=== PATIENT | male | born 1965 | race Two or more races ===

== ENCOUNTER 2024-09-29 17:56 | Emergency (ER) | payer BC, OTHER, SELFPAY ==
[2024-09-29 17:58] VITALS: BMI 25.0
[2024-09-29 18:13] VITALS: BP 136/90; PULSE 74; RESP 16; TEMP 37.2; O2SAT 99
--- NOTE | 2024-09-29 18:24 | XR_ITS ---
Examination: Duplex scan of the lower extremity, unilateral right Date and time of exam: September 29, 2024 at 1938 hrs. Indications: Status post brain surgery September 22, 2024 with onset right leg pain beginning 2 days ago Technique: Duplex scan of the extremity veins using B-mode/grayscale imaging and Doppler spectral analysis and color flow Attention is directed to internal echogenicity, compression and augmentation involving these veins, color flow assessment, spectral analysis Findings: Positive for extensive occlusive thrombus, acute in volume right common femoral, proximal mid right superficial femoral, popliteal, peroneal and posterior tibial veins Impression: Acute extensive deep vein thrombosis
--- NOTE | 2024-09-29 18:24 | EDRME_ITS ---
Rapid Medical Screening Exam RME Arrival date/time: 09/29/24 17:56 59M with history of brain tumor resection 1 week ago (benign; at [facility]) presents to ED with 2 days of RLE pain and numbness w/o fall/trauma. Patient denies swelling and SOB, as well as RUE weakness, AMS, N/V, and slurred speech. Chief Complaint: Extremity Problem,Nontraumatic Vital signs: Vital Signs Temperature 98.9 F 09/29/24 18:13 Pulse Rate 74 09/29/24 18:13 Respiratory Rate 16 09/29/24 18:13 Blood Pressure 136/90 H 09/29/24 18:13 Pulse Oximetry (%) 99 09/29/24 18:13 Oxygen Delivery Method Room Air 09/29/24 18:13
[2024-09-29 20:11] VITALS: BP 128/89; PULSE 67; RESP 18; O2SAT 99
--- NOTE | 2024-09-29 20:30 | PC.NURSE ---
pt ambulated to BR and did have a normal BM.
[2024-09-29 21:12] LABS: Basophils # (Auto) 0.1 Thou/mm3 (0.0-0.2); Basophils % (Auto) 1 % (0-2.5); Eosinophils # (Auto) 0.1 Thou/mm3 (0.0-0.5); Eosinophils % (Auto) 1 % (0-10); Hematocrit 43.4 % (41.0-53.0); Hemoglobin 15.9 g/dL (13.5-16.0); Immature Granulocytes % (Auto) 2 % (0-0); Immature Granulocytes Auto 0.22 Thou/mm3 (0.00-0.00); Lymphocytes # (Auto) 2.5 Thou/mm3 (1.0-4.8); Lymphocytes % (Auto) 19 % (10-50); Mean Corpuscular HGB Conc 36.6 g/dl (31.0-37.0); Mean Corpuscular Hemoglobin 32.9 pg (25.0-35.0); Mean Corpuscular Volume 90 fL (80-100); Monocytes # (Auto) 1.3 Thou/mm3 (0.0-0.8); Monocytes % (Auto) 10 % (0-12); Neutrophils # (Auto) 8.8 Thou/mm3 (1.8-7.7); Neutrophils % (Auto) 68 % (37-80); Nucleated Red Blood Cell % 0 /100 WBC (0); Platelet Count 224 Thou/mm3 (140-440); Red Blood Count 4.83 Miln/mm3 (4.50-5.90)
[2024-09-29 21:27] LABS: Partial Thromboplastin Time 24.8 Seconds (22.0-36.0); Prothrombin Time 11.4 Seconds (9.0-12.2)
[2024-09-29 21:31] LABS: Alanine Aminotransferase 38 U/L (10-49); Albumin, Serum 5.2 gm/dL (3.5-5.0); Albumin/Globulin Ratio 1.9 (1.2-2.2); Alkaline Phosphatase 58 U/L (46-116); Anion Gap 8 (7-16); Aspartate Amino Transferase 24 U/L (0-34); BUN/Creatinine Ratio 20 Ratio (12-20); Bilirubin,Total 0.5 mg/dL (0.3-1.2); Blood Urea Nitrogen 24 mg/dL (9-23); Calcium 9.8 mg/dL (8.3-10.6); Calcium (Corrected) 9.8 mg/dL (8.5-10.1); Carbon Dioxide 22.8 mMol/L (20.0-31.0); Chloride 104 mMol/L (98-107); Creatinine (Component) 1.2 mg/dL (0.6-1.3); Estimated Creatinine Clearance 62.7 mL/min (>60); Globulin 2.7 gm/dL (2.3-3.5); Glucose 96 mg/dL (74-106); Osmolality,Calculated 274 (275-295); Potassium 4.2 mMol/L (3.4-5.1); Sodium 135 mMol/L (136-145); Total Protein 7.9 gm/dL (5.7-8.2); eGFR > 60 See Note
--- NOTE | 2024-09-29 21:42 | PD.EDADULT ---
ED General RME/HPI General Chief complaint: Extremity Problem,Nontraumatic Stated complaint: RIGHT LEG PAIN x 2 DAYS, S/P SURG 09/22 ON BRAIN Time Seen by Provider: 09/29/24 20:45 Arrival date/time: 09/29/24 17:56 CC: Right leg pain HPI onset approximately 3 days ago patient was recently discharged from [facility] after a left craniotomy secondary to meningioma resection by Dr. Richards. Patient denies any shortness of breath fall altered mentation nausea vomiting or diarrhea is complaining of isolated pain in the right leg. Patient's family member called [facility] nursing services who advised him to come to the ER to rule out a DVT. RME / HPI RME / HPI narrative: 09/29/24 17:56 59M with history of brain tumor resection 1 week ago (benign; at [facility]) presents to ED with 2 days of RLE pain and numbness w/o fall/trauma. Patient denies swelling and SOB, as well as RUE weakness, AMS, N/V, and slurred speech. Related Data Previous Rx's ?Medication ?Instructions ?Recorded docusate sodium 100 mg capsule 100 mg PO BID #40 caps 07/27/21 (Colace) hydrocodone 5 mg-acetaminophen 325 1 tab PO Q6H PRN pain (scale score 07/27/21 mg tablet 7-10) #30 tabs cyclobenzaprine 10 mg tablet 10 mg PO HS PRN muscle spasm #10 01/28/22 tabs Allergies Allergy/AdvReac Type Severity Reaction Status Date / Time No Known Allergies Allergy Verified 01/28/22 17:18 Review of Systems Review of Systems Narrative Review of Systems: GEN: No fever, no chills, no weight loss EYES: No discharge, no visual changes, no pain HEENT: No ear pain, no congestion, no sore throat PULM: No shortness of breath, no cough, no congestion CV: No chest pain, no dyspnea on exertion, no palpitations GI: No nausea, no vomiting, no diarrhea, no pain, no constipation : No frequency, no urgency, no dysuria MUSC/SKEL: No joint pain, no back pain SKIN: No rash PSYCH: No hallucinations, no depression HEME/LYMPH: No easy bleeding or bruising tendencies NEURO: No weakness, no headache Past Medical History Past Medical History NEUROLOGIC: Negative Neurological Disorders or Seizures CARDIAC: Negative Cardiac Disorders, Congestive Heart Failure, Edema, Cellulitis (RIGHT ARM SLIGHT SCAB DUE TO BURN (PTS OCCUPATION COOK)) or Varicose Veins RESPIRATORY: Negative Chronic Obstructive Pulmonary Disease (COPD), Tuberculosis or Sleep Apnea GASTROINTESTINAL: Positive Gastrointestinal Disorders (inguinal hernia and repair) and Gastroesophageal Reflux Disease; Negative Hepatitis GENITOURINARY: Negative Genitourinary Disorders or Renal Disease MUSCULOSKELETAL: Negative Musculoskeletal Disorders ENDOCRINE: Negative Endocrine Disorders, Diabetes Mellitus Type 1 or Diabetes Mellitus Type 2 HEMATOLOGIC: Negative Blood Disorders OTHER HISTORY: 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)); Negative Hospitalization, Shingles, Falls, Blood Transfusions, Blood Transfusion Reaction, Anesthesia Reactions, Chemotherapy, Radiation Therapy, MRSA, Chicken Pox, Measles, Mumps or Cancer Family History FAMILY HISTORY: Positive Family Cardiac Disorders (MOTHER (NV,HTN)FATHER,SISTER (HTN)), Family Gastrointestinal Problems (FATHER (ULCER)) and Family Surgery (FATHER,MOTHER,BROTHER,SISTER)); Negative Family Psychiatric Problems, Family Respiratory Disorders, Family Cancer or Family Anesthesia Reaction Surgical History SURGICAL: Positive Abdominal Surgery; Negative Pacemaker Social History SMOKING STATUS: Never smoker ED Exam Narrative Physical exam: [General: Not in any acute distress acute distress Head large left parietal occipital surgical scar healing well no surrounding erythema or edema, no edema or depression. HEENT: Eyes: Pupils are PERRLA EOMs are intact slight delayed closing of the left upper eyelid mouth pink moist membranes uvula is midline swallow symmetrical phonation is normal. Ears no rhinorrhea. All other subsystems of HEENT are within acceptable limits Neck is supple nontender, no JVD no edema no LAD Chest equal chest rise nontender to palpation Respiratory: Clear to auscultation no wheezes crackles or rubs CV: Rate rhythm is regular no murmurs rubs or clicks Abdomen is soft nontender no masses positive bowel sounds all 4 quadrants Back: No CVA tenderness no spinous process tenderness from cervical spine thoracic and lumbar spine Skin: Surgical site as listed above is clean dry and intact otherwise skin is intact no petechiae rash induration ulceration or crepitus Extremities: Right lower extremity: Patient has exquisite tenderness to palpation at the origin of the gastrocnemius and soleus, no posterior fossa tenderness with palpation there is some lateral thigh and tenderness with palpation of the hamstring muscles in the posterior leg. No edema erythema ecchymotic areas. No open lesions induration or ulcerations. No left leg tenderness with palpation. Moving all other extremities against resistance cap refill less than 2 seconds neurosensory intact Neuro: Awake alert oriented x3 Glascow coma 15 no focal deficits] Course Course Course Narrative: Patient's case discussed with Dr.K. Richards, neurosurgeon who states since we do not have IR available for catheter guided thrombolysis that he wants the patient transferred to the ER as quickly as possible without anticoagulants. The plan regarding patient transfer, starting anticoagulants per Dr. Richards's recommendations were discussed at length with the patient including complications such as intracranial hemorrhage with no neurosurgical available. Both the patient and the are agreeable to this plan. At 2230, Dr. Hans Richards neurosurgeon, call me back stating that [facility] inpatient beds are full in the ER is declining excepting patients due to capacity as well. Dr. Richards made the following recommendations while waiting for the transfer to go through. 1: Baseline head CT to show there is no current bleed 2: Patient goes on 2-hour neurocheck 3: Heparin drip is started 4: Ct head after Ptt gets to therapeutic level 5: If after 3 days no transfer and has been on continuous heparin drip without neurologic deterioration switch over to oral anticoagulants and discharged home. Dr. Hans Richards's personal phone number is: [phone] Quality Measures VTE prophylaxis Orders Category Date Time Status MRI Screening NOW Care 09/30/24 01:49 Completed Neuro Check Q2H Care 09/29/24 22:50 Completed Notify provider NOW Care 09/29/24 22:50 Completed Diet Regular Diet 09/30/24 Breakfast Active Transfer to another facility [Transfer/Discharge] Stat Discharge 09/30/24 09:[address] head/brain wo con Stat Exams 09/29/24 22:49 Completed MR head/brain wo con Stat Exams 09/30/24 Completed US venous doppler LE RT Stat Exams 09/29/24 18:24 Completed CBC Stat Lab 09/29/24 21:00 Completed CMP [Comprehensive Metabolic Panel] Stat Lab 09/29/24 21:00 Completed INR [Prothrombin Time with INR] Stat Lab 09/29/24 21:00 Completed PTT [Partial Thromboplastin Time] Routine Lab 09/30/24 08:13 Completed PTT [Partial Thromboplastin Time] Stat Lab 09/29/24 21:00 Completed Heparin Inj Med 09/29/24 22:50 Discontinued 5,900 unit IV X1 ONE Heparin/D5w 25K 250 ML Ivpb [Heparin in D5w Ivpb] Med 09/29/24 23:00 Discontinued 25,000 unit in 250 ml IV 18 units/kg/hr Vital Signs Vital signs: Vital Signs Temperature 98.9 F 09/29/24 18:13 Pulse Rate 74 09/29/24 18:13 Respiratory Rate 16 09/29/24 18:13 Blood Pressure 136/90 H 09/29/24 18:13 Pulse Oximetry (%) 99 09/29/24 18:13 Oxygen Delivery Method Room Air 09/29/24 18:13 [facility] Patient data External records reviewed:: [facility] previous records Clinical information provided by:: patient and spouse Social determinants that could affect healthcare access:: none Patient has the following chronic illnesses:: Recent craniotomy for hemangioma resection. How is presenting disease/condition affected by chronic disease/condition?: exacerbated by Evaluation data The following diagnostics were reviewed and interpreted by me:: lab results and radiology exam(s) Lab and/or radiology exams considered but not ordered:: CBC shows a leukocytosis of 13,000 no anemia thrombocytopenia Coags show an INR of 1.0 no other abnormalities CMP shows sodium 135 potassium of 4.2 chloride of 104 CO2 of 22.8 BUN of 24 creatinine 1.2 glucose of 96. Ultrasound of the right leg is inter by me read by radiology shows extensive DVTs in the common femoral superficial femoral popliteal tibialis anterior peroneal veins. Interpretation Summary: Extensive DVTs. Patient is 7 days post craniotomy will consult neurosurgery at [facility] for further medical management. Medications Medications considered but not ordered:: None Medication administrations:: Medication Administration History Discontinued Medications Heparin Sodium (Porcine) (Heparin Sod Inj 5000 Unit/Ml Vial) 5,900 unit 80 unit/kg (5900 unit) IV X1 ONE; Protocol Stop: 09/29/24 22:51 Last Admin: 09/30/24 03:15 Dose: 5,900 unit Documented By: EARLE Co-signed By: Heparin Sodium/Dextrose (Heparin In D5w Ivpb) 25,000 unit in 250 mls @ 13.064 mls/hr IV .Q19H9M [facility]; Protocol Stop: 10/13/24 22:59 Last Admin: 09/30/24 03:15 Dose: 18 units/kg/hr, 13.064 mls/hr Documented By: EARLE Co-signed By: None Consultations Consultation(s) initiated? (list below): No Diagnosis Differential Diagnosis ED Complaint MDM: PE, DVT, intracerebral hemorrhage Most likely diagnosis given after review of the tests above:: Extensive lower extremity DVT Admission Indicated Admission indicated?: indicated Explain why admission is indicated or not indicated:: Transfer Admission Request Was there a request for admission?: No Disposition Plan Disposition Plan: Transfer Medical Decision Making Differential Diagnosis Differential Diagnosis: PE, DVT, intracerebral hemorrhage Lab Data 09/29/24 21:00 09/29/24 21:00 Labs: Lab Results 09/29/24 09/30/24 Range/Units 21:00 08:13 WBC 13.0 H (3.8-10.6) Thou/mm3 RBC 4.83 (4.50-5.90) Miln/mm3 Hgb 15.9 (13.5-16.0) g/dL Hct 43.4 (41.0-53.0) % MCV 90 (80-100) fL MCH 32.9 (25.0-35.0) pg MCHC 36.6 (31.0-37.0) g/dl RDW Std Deviation 43.0 (35.1-43.9) fL Plt Count 224 (140-440) Thou/mm3 Neut % (Auto) 68 (37-80) % Lymph % (Auto) 19 (10-50) % Divide % (Auto) 10 (0-12) % Eos % (Auto) 1 (0-10) % Baso % (Auto) 1 (0-2.5) % Neut # (Auto) 8.8 H (1.8-7.7) Thou/mm3 Lymph # (Auto) 2.5 (1.0-4.8) Thou/mm3 Divide # (Auto) 1.3 H (0.0-0.8) Thou/mm3 Eos # (Auto) 0.1 (0.0-0.5) Thou/mm3 Baso # (Auto) 0.1 (0.0-0.2) Thou/mm3 Immature Gran # (Auto) 0.22 H (0.00-0.00) Thou/mm3 Absolute Nucleated RBC 0.00 (0.00-0.00) Thou/mm3 Immature Gran % 2 H (0-0) % Nucleated RBC % 0 (0) /100 WBC PT 11.4 (9.0-12.2) Seconds INR 1.0 (0.9-1.3) APTT 24.8 > 139.0 H* D (22.0-36.0) Seconds Sodium 135 L (136-145) mMol/L Potassium 4.2 (3.4-5.1) mMol/L Chloride 104 (98-107) mMol/L Carbon Dioxide 22.8 (20.0-31.0) mMol/L Anion Gap 8 (7-16) BUN 24 H (9-23) mg/dL Creatinine 1.2 (0.6-1.3) mg/dL Estim Creat Clear Calc 62.7 (>60) mL/min eGFR > 60 (60 - ) See Note BUN/Creatinine Ratio 20 (12-20) Ratio Glucose 96 (74-106) mg/dL Calculated Osmolality 274 L (275-295) Calcium 9.8 (8.3-10.6) mg/dL Corrected Calcium 9.8 (8.5-10.1) mg/dL Total Bilirubin 0.5 (0.3-1.2) mg/dL AST 24 (0-34) U/L ALT 38 (10-49) U/L Alkaline Phosphatase 58 (46-116) U/L Total Protein 7.9 (5.7-8.2) gm/dL Albumin 5.2 H (3.5-5.0) gm/dL Globulin 2.7 (2.3-3.5) gm/dL Albumin/Globulin Ratio 1.9 (1.2-2.2) Discharge Plan Plan Patient Disposition: [facility] Acute Care [facility] Facility Pt Being Transferred to: [facility] Service Needed for Transfer: Neurosurgery Disposition Comment: guarded Prescriptions/Referrals Prescriptions/Med Rec: No Action hydrocodone-acetaminophen 5-325 mg tablet 1 tab PO Q6H MDD 4 PRN (Reason: pain (scale score 7-10)) Qty: 30 0RF docusate sodium [Colace] 100 mg capsule 100 mg PO BID Qty: 40 0RF cyclobenzaprine 10 mg tablet 10 mg PO HS PRN (Reason: muscle spasm) Qty: 10 0RF Referrals: Youssefi,Neville, PA-C [Primary Care Provider] - In 1 week Problem List Clinical Impression: Intracranial hemorrhage, Deep vein thrombosis of right lower limb Patient/Caregiver Discharge Instructions Print Language: Kinyarwanda Stand Alone Forms: Andree Award Info., Patient Portal Info Letter PA/MANAGER TRAINING Supervising Physician PA/MANAGER TRAINING Supervising Physician: Suhas Smith ENP
[2024-09-29 22:13] VITALS: BP 127/80; RESP 18; TEMP 36.6; O2SAT 98
--- NOTE | 2024-09-29 22:16 | PC.NURSE ---
9499 SPOKE WITH MAURIZIO AT [facility]. DR HERNANDEZ HAS ACCEPTED PT BUT ER IS AT [facility]. DR HERNANDEZ SPOKE WITH [facility]. PER MAURIZIO PT IS TO GET THE NEXT AVAILABLE BED. IF WE HAVE ANY QUESTIONS WE ARE TO CALL BED CONTROL [phone] AND ASK FOR SURGERY NURSE ONLY.
--- NOTE | 2024-09-29 22:49 | XR_ITS ---
Examination: CT brain head without contrast. 2-D sagittal coronal reconstructions Date and time of exam:September 29, 2024 1108 hrs. Indications: History craniotomy September 22, 2024, headache today CTDI: vol (mGy):48.1 DLP: (mGycm):981 Technique: Multiple CT axial sections of the brain have been obtained, 5 mm slice thickness. Contrast has not been administered. 2-D sagittal, coronal reconstructions have been obtained Low dose protocols were performed. One or more of the following dose reduction techniques were used; automated exposure control, adjustment of the mA and/or KV according to patient size, use of iterative reconstruction technique. Findings: Left occipital bone craniotomy defect Encephalomalacia left cerebellar hemisphere Mild hyperdensity lateral on the left side to the brainstem, coronal image 31, measuring 5 mm in thickness Fourth ventricle midline Normal ventricular size Impression: Postoperative changes left occipital bone left cerebellar hemisphere Suspicious for mild hemorrhage, 5 mm in thickness contiguous with the left brainstem, axial image 32, coronal image 31, recommend short-term follow-up CT brain scan to document resolution of this hemorrhage
[2024-09-30] VITALS (7 sets, daily range): BP systolic 109–128; BP diastolic 73–85; PULSE 60–76; RESP 13–20; TEMP 36.6; O2SAT 96–98
--- NOTE | 2024-09-30 | XR_ITS ---
Examination: MRI brain without intravenous contrast. Date and time of exam: September 30, 2024 0818 hours INDICATIONS: Status post craniotomy for meningioma resection one week ago, patient presents to the emergency room with numbness in the right lower extremity and pain Technique: Multiple axial and sagittal images of the brain obtained. Siemens high-resolution 1.5 Joceline short bore scanners utilized. Sagittal sections, T1-weighted, TR 500, TE 14, are performed. Axial sections proton-density and T2-weighted have been obtained. Inversion recovery axial images, TR 9, 260, TE 111, TI 2500. Diffusion weighted images, axial sections, TR 4800, TE 128, B value 1000 Axial sections, ADC map, TR 4800, TE 128 Findings: Enlargement of the sella turcica is not present. The optic chiasm and infundibular are not remarkable. Prepontine and interpeduncular cisterns are not enlarged. There is no localized enlargement of the medulla or david. Fourth ventricle and cerebellar tonsils appear normal in position. No subacute area of hemorrhage density is seen. Mass in the cerebellopontine angle region is not evident. Globes symmetrical. Orbital musculature including medial lateral rectus muscles do not exhibit abnormality. Diffusion-weighted images demonstrate no focus restricted diffusion. Increased white matter signal evident, minimal hyperintense signal on the FLAIR images along the lateral margin of the brain stem and lateral margin of the anterior left cerebral hemisphere Mass effect upon the ventricular system is not identified. Impression: Negative for mass effect Negative for acute infarct Minimal hemorrhage, 3 mm in thickness external on the left side to the brainstem and left cerebellar hemisphere, recommend 24-hour or sooner follow-up CT brain scan
--- NOTE | 2024-09-30 00:31 | EDNOTE_ITS ---
Emergency Room Addendum Addendum Narrative: 2300: Care assumed from Suhas Smith NP. Past medical, surgical, social and family history reviewed. Vitals and home medications reviewed. Results and treatment plan discussed. I will assume the care of the patient at this time and will follow the patient, pending bed availability at [facility] and other recommendations, see previous note. Please refer to the emergency department record for history and examination. 0140: Spoke with Dr. Avalos from [facility], recommends holding heparin at this time. Plan for MRI in the AM and is still pending transfer. 0242: Spoke with Dr. Richards, neurosurgeon from [facility], who is requesting to see the CT images. I sent Dr. Richards the images of the CT head with the patient's consent. Awaiting a callback at this time. 0259: Spoke with Dr. Richards from [facility], who states the patient can be started on the Heparin drip, and to do Q2hr neuro checks and Q4hr PTT/PT. Recommends getting a repeat CT after the PTT/PT is at a therapeutic range. 0600: Care signed out to the next oncoming provider. Past medical, surgical, social and family history reviewed. Vitals and home medications reviewed. Results and treatment plan discussed. They will assume the care of the patient at this time and will follow the patient, pending bed availability at [facility]. RADIOLOGY RESULTS: I have personally reviewed the radiology data and agree with the radiologist's interpretation below: [facility] Report Signed Patient: RADU GILES. Record#: [id number] Birthdate: 1965 Age/Sex: 59 / M Location: [facility] Attending Dr: Ordering Physician: Suhas Smith NP Date of Service: 09/29/24 Procedure(s): CT head/brain wo con Accession Number(s): [id number] cc: Suhas Smith NP; Florentin Cai MD; Neville Flaherty PA-C~ Examination: CT brain head without contrast. 2-D sagittal coronal reconstructions Date and time of exam:September 29, 2024 1108 hrs. Indications: History craniotomy September 22, 2024, headache today CTDI: vol (mGy):48.1 DLP: (mGycm):981 Technique: Multiple CT axial sections of the brain have been obtained, 5 mm slice thickness. Contrast has not been administered. 2-D sagittal, coronal reconstructions have been obtained Low dose protocols were performed. One or more of the following dose reduction techniques were used; automated exposure control, adjustment of the mA and/or KV according to patient size, use of iterative reconstruction technique. Findings: Left occipital bone craniotomy defect Encephalomalacia left cerebellar hemisphere Mild hyperdensity lateral on the left side to the brainstem, coronal image 31, measuring 5 mm in thickness Fourth ventricle midline Normal ventricular size Impression: Postoperative changes left occipital bone left cerebellar hemisphere Suspicious for mild hemorrhage, 5 mm in thickness contiguous with the left brainstem, axial image 32, coronal image 31, recommend short-term follow-up CT brain scan to document resolution of this hemorrhage Dictated By: Florentin Cai MD Signed By: <Electronically signed by Florentin Cai MD in OV> 09/29/24 9046
--- NOTE | 2024-09-30 01:10 | PC.NURSE ---
CONTACTED [facility] WITH REGARD TO CT READING.
--- NOTE | 2024-09-30 01:42 | PC.NURSE ---
0149 [facility] RETURNED CALL SPEAKING WITH DR FERREIRA.
--- NOTE | 2024-09-30 02:45 | PC.NURSE ---
0242 DR HERNANDEZ WITH [facility] RETURNED CALL SPEAKING WITH DR FERREIRA AT THIS TIME.
[2024-09-30] MEDS: Heparin/D5w 25K 250 ML Ivpb 25,000 UNIT/250 ML BAG 13.064 UNIT IV (03:15)
[2024-09-30] MEDS: HEPARIN SOD INJ 5000 UNIT/ML VIAL 5900 UNIT IV (03:15)
--- NOTE | 2024-09-30 05:44 | PC.NURSE ---
q2h neuro checks continue. Pt is A&O x4. pt is hungry. Obtained order for reg diet. Pt given sandwich and water. Pt denies head pain.
--- NOTE | 2024-09-30 07:41 | PC.CM ---
Addendum entered by Alea Medina RN 09/30/24 10:30: 1030 called [facility] pt placement at [phone], Option 2 and then Option 2 for surgery bed control nurse Shantelle and informed ETA of [facility] at the airport and ground time for [facility]. Addendum entered by Alea Medina RN 09/30/24 10:27: 1027 sent paperwork to [facility]. Called [facility], spoke to Kamala and she confirmed that she received the paperwork. 1015 Made 2 transfer packets. 1 [place] [facility] [place] inside and 1 for [facility]. Completed all signatures. Gave transfer packets to charge nurse and number to call for report is on tracker. Addendum entered by Alea Medina RN 09/30/24 09:56: 0954 received call from Elana at [facility], She stated their team will be at airport at 1045 to bead picker the crew. She stated to fax face sheet and PCS form. I informed her I am working on it. 941 received call from Jose Enrique at [facility] air that [facility] declined due to weather but [facility] accepted and will at the airport at 1053 am and plus the ground time. Addendum entered by Alea Medina RN 09/30/24 09:30: 0927 called [facility], spoke to Cooper to setup the transport. He stated he will call back after flight check. Addendum entered by Alea Medina RN 09/30/24 09:23: [address] Waldrop and gave updates, spoke to him regarding transport. Dr. Waldrop stated to airlift the pt. Addendum entered by Alea Medina RN 09/30/24 09:14: 0906 called [facility], spoke to Zayda to get the update on the transfer request. Zayda informed me that pt has been accepted at [facility]. Pt is accepted by Dr. Lennox Richards at 0530 and strategic partnership representative who was working on the case was Silver[place]. She stated after this I need to contact pt placement at [phone], Option 2 and then Option 2 for surgery bed control nurse Shantelle. She transferred my call to Shantelle. Shantelle gave me bed info. Pt will be going to Room 66, 6 [address] Unit/neuro unit. Hospital address [address] [place] [address]. Report can be called at [phone]. Original Note: 0486 spoke to charge nurse, pt needs to be transferred for suspicious for mild hemorrhage contiguous with the leftbrainstem needs neurosurgery services/continuation of care. Charge nurse updated me that [facility] was contacted by night charge nurse and peer to peer was also done between doctors. Pt had his brain surgery done at [facility].
--- NOTE | 2024-09-30 08:37 | PD.EDADDENDU ---
Emergency Room Addendum Addendum Narrative: 0600: Care assumed from Dr. Nair, the previous shift emergency physician. Past medical, surgical, social and family history reviewed. Vitals and home medications reviewed. I will assume the care of the patient at this time, pending bed availability for transfer at [facility]. Please refer to the emergency department record for history and examination from initial visit.? EMS notes reviewed by me. Nursing notes reviewed by me. Vital signs reviewed by me. detention records reviewed by me. [facility] medical records reviewed by me.
[2024-09-30 09:24] LABS: Partial Thromboplastin Time > 139.0 Seconds (22.0-36.0)
--- NOTE | 2024-09-30 09:44 | PD.EDADDENDU ---
Emergency Room Addendum Addendum Narrative: I took over the care from Dr. FERREIRA at 6 AM on 09/30/2024. Dr. FERREIRA took over the care from Suhas Smith NP at 11 PM on 09/29/2024. See their notes for complete H&P and ED course. I watched the patient until the patient transferred out to [facility]. During my watch, the patient remained stable. Fady Waldrop MD
--- NOTE | 2024-09-30 10:02 | PC.NURSE ---
0930 PTT 139 HEPARIN DRIP STOPPED PER PROTOCOL. DR LARKIN INFORMED OF PTT AND WILL FOLLOW PROTOCOL AND RESTART IN AN HOUR AT 15UNITS/HR/KG, AGREED.
--- NOTE | 2024-09-30 10:41 | PC.NURSE ---
PATIENT STABLE. NO CHANGE. REPORT CALLED TO MAURICIO JOYA AT [facility]. PATIENT AND FAMILY/ AWARE OF TRANSPORT AT 1045 VIA AIR.
--- NOTE | 2024-09-30 11:04 | PC.NURSE ---
MAURICIO JOYA CALLED AND UPDATED. PATIENT WILL NOT HAVE HEPARIN DRIP RESTARTED PER DR LARKIN.
== END 2024-09-30 11:21 | disposition short-term general hospital (02) ==
PROVIDERS: Emergency Medicine; Physician Assistant; Emergency Provider Emergency Medicine; PCP Physician Assistant
DX: I62.9 Nontraumatic intracranial hemorrhage, unspecified (principal); I82.411 Acute embolism and thrombosis of right femoral vein; I82.431 Acute embolism and thrombosis of right popliteal vein; I82.451 Acute embolism and thrombosis of right peroneal vein; I82.441 Acute embolism and thrombosis of right tibial vein; Z75.1 Person awaiting admission to adequate facility elsewhere
CPT/HCPCS: 36415; 70450; 70551; 80053; 85025; 85610; 85730; 93971; 99285; J1643; J1644